=== PATIENT | male | born 2000 | race African-American/Black ===

== ENCOUNTER 2023-03-29 11:19 | Outpatient (AMB) | payer OTHER, SELFPAY ==
--- NOTE | 2023-03-29 11:21 | MHC.PC.OV ---
Vital Signs 03/29/23 11:24 Height 5 ft 9.5 in Weight 272 lb 2 oz BMI 39.6 BP 126/90 H Blood Pressure Location Lt brachial Position Sitting Respiration 12 Pulse 100 Pulse Source Pulse Oximeter Temp 97.1 F Temp Source Temporal Artery Scan Pulse Oximetry (%) 97 Oxygen Delivery Method Room Air Intake Visit Reasons: New patient-autism Intake Note: Patient's mother states that she need refills on patient's prescriptions and some of them are from a pediatric psychologist. Potato Chip Cooker Machine Required: No Accompanied by: Mother Allergies Seasonal Allergies Allergy (Mild, Verified 03/29/23 11:52) Congestion Medication List - Last Reconciled 03/29/23 by Jefry Morton CNP cetirizine (Zyrtec) 10 mg PO DAILY PRN clonidine HCl 0.2 mg PO BEDTIME methylphenidate HCl ER 72 mg PO QAM oxcarbazepine 0 mg PO sertraline 100 mg PO DAILY trazodone 150 mg PO BEDTIME Tobacco use date assessed: 03/29/23 Dental Screening Dental Screen Date: 03/29/23 Did you have a dental visit in the last 12 months?: No Did you have a dental problem in the last 6 months where you did not have access to dental care?: No Was dental information given to patient?: Yes HPI HPI Comments History of Present Illness Details 22-year-old female, accompanied by his mother, presents to [facility] care. He was last seen by his former PCP/conference service coordinator, [facility], before she retired in early 2021. He has not had blood work done in over 3 years. He has PMH significant for anxiety, autism, ADHD, PDD, and childhood asthma. He was followed by a pediatrics psychiatrist until 08/2022; his psychiatrist retired in 09/2022 He notes he is not sexually active. The patient's mother states that he has been eating past the for breakfast, lunch, and dinner. Therefore, she requests vitamin-D levels checked to rule out deficiency. She requests a refill of methylphenidate. She also requests a referral to assist the patient connect to an autism therapist and psychiatrist. [facility] Medical History (Updated 03/29/23 @ 12:39 by Jefry Morton CNP) Anxiety Asthma Autism Sinusitis Surgical History (Updated 03/29/23 @ 11:44 by Asya Jaramillo MA) No pertinent past surgical history Family History (Updated 03/29/23 @ 11:49 by Asya Jaramillo MA) Mother Asthma High blood pressure Uterine cancer Father Asthma High cholesterol Diabetes Bipolar 1 disorder Maternal Grandmother Asthma High blood pressure Cardiovascular disease Paternal Grandmother Diabetes Maternal Grandfather High blood pressure Family/Other Asthma Social History Housing: House Patient Tobacco Use Status: Never used Tobacco e-Cigarette/Vaping Use: Never Used service: No Current occupational status: unemployed and student Cognitive needs: No Hearing needs: No Vision needs: Yes Questionnaire PHQ-9 Over the last 2 weeks, how often have you been bothered by any of the following problems? 1. Little interest or pleasure in doing things: not at all 2. Feeling down, depressed, or hopeless: several days 3. Trouble falling or staying asleep, or sleeping too much: nearly every day 4. Feeling tired or having little energy: several days 5. Poor appetite or overeating: more than half the days 6. Feeling bad about yourself - or that you are a failure or have let yourself or your family down: not at all 7. Trouble concentrating on things, such as reading the newspaper or watching television: not at all 8. Moving or speaking so slowly that other people could have noticed. Or the opposite - being so fidgety or restless that you have been moving around a lot more than usual: not at all 9. Thoughts that you would be better off or of hurting yourself in some way: not at all Total score: 7 Depression Screening Interpretation: Positive Source: Developed by Drs. Jacob Clements, Neena Zurita, Leonel Chavez and colleagues, with an educational juaquin from [employer]. Thrive Questionnaire Date Thrive assessed: 03/29/23 I am a: Parent/Caregiver What is your living situation today?: I have a steady place to live Within the past 12 months, did the food you bought not last and you didn't have the money to get more?: Never true Within the past 12 months, did you worry whether your food would run out before you got money to buy more?: Never true Do you have trouble paying for medicines?: No Do you have trouble getting transportation to medical appointments?: No Do you have trouble paying your heating and electricity bill?: No Do you have trouble taking care of your child, family member or friend?: No Do you have trouble with day-to-day activities such as bathing, preparing meals, shopping, managing finances, etc.?: Yes Are you currently unemployed and looking for a job?: No Are you interested in more education?: No Please select the resources that you would like help with: None Currently or been in a relationship where the following occur: no concerns reported AUDIT C Alcohol Use Questionnaire (AUDIT-C) 1. How often do you have a drink containing alcohol?: Never 3. How often do you have six or more drinks on one occasion?: Never Total Score: 0 NICO-7 AMB Questionnaire NICO-7 Date NICO - 7 assessed: 03/29/23 Feeling nervous, anxious, or on edge: 2 = More than half the days Not being able to stop or control worryin = More than half the days Worrying too much about different things: 1 = Several days Trouble relaxin = More than half the days Being so restless that it is hard to sit still: 2 = More than half the days Becoming easily annoyed or irritable: 3 = Nearly every day Feeling afraid as if something awful might happen: 0 = Not at all Total NICO-7 score (0-4 normal; 5-9 mild; 10-14 moderate; 15-21 severe): 12 Source: Developed by Drs. Jacob Clements, Neena Zurita, Leonel Chavez and colleagues, with an educational juaquin from [employer]. ACT Questionnaire In the past 4 weeks, how much of the time did your asthma keep you from getting as much done at work, school or at home?: None of the time During the past 4 weeks, how often have you had shortness of breath?: Not at all During the past 4 weeks, how often did your asthma symptoms wake you up at night or earlier than usual in the morning?: Once or twice per week During the past 4 weeks, how often have you had to use your rescue inhaler or nebulizer medication?: Not at all How would you rate your asthma control during the past 4 weeks?: Completely controlled Score: 24 Review of Systems Const Details: Denies chills, Denies fatigue, Denies fever(s), Denies headache(s) and Denies weakness HEENT Denies change in vision, Denies dizziness, Denies headache(s), Denies hearing loss, Denies nasal congestion, Denies sinus pain, Denies sinus pressure and Denies sore throat Card Denies chest pain, Denies lightheadedness, Denies dyspnea and Denies other (palpitations) Resp Denies cough, Denies dyspnea and Denies wheezing GI Denies abdominal pain, Denies melena, Denies hematochezia, Denies change in bowel habits, Denies dyspepsia and Denies nausea Denies hematuria and Denies dysuria Musc Denies abnormal gait, Denies myalgias, Denies arthralgias, Denies numbness and Denies tingling Skin/Breast Denies rash, Denies unusual bruising and Denies wounds Neuro Denies abnormal gait, Denies dizziness, Denies headache(s), Denies memory loss, Denies numbness, Denies Sensory deficit (Neuro), Denies tingling and Denies weakness Psych Reports anxiety, Denies depression, and Denies memory loss Endo Denies cold intolerance, Denies fatigue, Denies heat intolerance, Denies polydipsia and Denies polyuria David/Lymph Denies easy bleeding and Denies easy bruising Aller/Immun Denies wheezing Physical exam (Primary Care) Vital Signs: Last Vital Signs Temp 97.1 F 03/29/23 11:24 Pulse 100 03/29/23 11:24 Resp 12 03/29/23 11:24 BP 126/90 H 03/29/23 11:24 Pulse Ox 97 03/29/23 11:24 Oxygen Delivery Method Room Air 03/29/23 11:24 BMI result Body Mass Index 39.6 Tobacco/Smoking Status: Tobacco use Status Tobacco use date assessed 03/29/23 03/29/23 11:40 Patient Tobacco Use Status Never used Tobacco 03/29/23 11:40 e-Cigarette/Vaping Use Never Used 03/29/23 11:40 Depression Screening Interpretation: Positive Currently or been in a relationship where the following occur: no concerns reported Const Other: General: no acute distress, well developed, alert and awake Nutritional Appearance: well nourished Orientation/consciousness: patient oriented x3 HENMT Head: Yes normocephalic and Yes atraumatic Ears: hearing grossly normal bilaterally and TM's normal bilaterally General nose exam: Normal external nose present and Normal nares present Mouth: Normal oral and palatal mucosa present and moist mucous membranes Teeth and gingiva: dentition normal Throat: Yes oropharynx normal Eyes Pupils: Equal, round and reactive pupils present and Pupil accommodation reflex normal EOM: EOMs intact bilaterally Neck Neck: Yes normal visual inspection, Yes no lymphadenopathy and Yes trachea midline Thyroid: Thyroid normal Carotids: no bruits Lymphatic: no lymphadenopathy noted Chest Chest palpation & inspection: normal inspection of the chest Resp Effort & Inspection: normal respiratory effort Auscultation: clear to auscultation bilaterally Cardio Rate: regular rate Rhythm: regular rhythm Heart sounds: S1 normal heart sound present, S2 normal heart sound present, no gallops, no murmurs and no rubs Bruits: no abdominal aortic bruits and no carotid bruits GI Palpation (GI): No Abdominal aortic bruit present, Soft to palpation, nontender, No hepatosplenomegaly present and No Rebound tenderness present Auscultation: normal bowel sounds General: Yes no CVA tenderness Back/Spine/Pelvis Back: no CVA tenderness Cervical Spine: cervical ROM normal and No Cervical spine tenderness Thoracic/Lumbar Spine: thoraco-lumbar ROM normal, No pain with thoraco-lumbar ROM, No thoracic spinal tenderness and No lumbar spinal tenderness Skin General: warm and dry. Normal skin color. Normal skin turgor Lesions: no lesions Rashes: no rashes Trauma: no lacerations or abrasions Wounds: no wounds Nails: normal Neuro General: patient oriented x3, gait normal and CN's II-XI intact bilaterally Cranial nerves: Yes Equal, round and reactive pupils present Cognition (Neuro): normal cognition Gait exam (Neuro): Normal gait present Motor exam (neuro): 5/5 motor strength present throughout Sensory Exam: No Sensory deficit (Neuro) Deep tendon reflexes (DTR's): Right patellar reflex intensity grade: 2+ and Left patellar reflex intensity grade: 2+ Extrem General: Yes normal to inspection, No edema and No calf tenderness Psych Appearance: grossly normal Affect: normal affect Attitude: cooperative Thought process: Normal thought process present Assessment and Plan Assessment & Plan (1) Normal physical examination, routine: Code(s): Z00.00 - Encounter for general adult medical examination without abnormal findings Plan: No significant physical restrictions or limitations noted Encouraged to get fasting blood work done before next visit Follow-up in 2 months or return sooner with worsening or new symptoms Verbalized understanding and agreed with the plan. (2) ADD (attention deficit disorder): Code(s): F98.8 - Other specified behavioral and emotional disorders with onset usually occurring in childhood and adolescence Plan: Methylphenidate refilled. Take as prescribed Referred to the community navigator to assist with connecting to autism therapist and psychiatrist Follow-up in 2 months or return sooner with symptoms or concerns Verbalized understanding and agreed with treatment plan. (3) Autism: Code(s): F84.0 - Autistic disorder Plan: Referred to the community navigator to assist with connecting to autism therapist and psychiatrist (4) Anxiety: Code(s): F41.9 - Anxiety disorder, unspecified Plan: NICO-7 score revealed mild anxiety. PHQ-9 score is normal Sertraline, trazodone, oxcarbazepine, and and clonidine as prescribed Follow-up in 2 months or return sooner with worsening or new symptoms Verbalized understanding and agreed with treatment plan. (5) Laboratory tests ordered as part of a complete physical exam (CPE): Code(s): Z00.00 - Encounter for general adult medical examination without abnormal findings Plan: Fasting labs ordered as part of a complete physical exam. Advised to fast for at least 10 hours before getting labs drawn. May drink water Verbalized understanding and agreed with treatment plan. Orders: Orders Vitamin D 25-OH Total Today Z00.00 - Encounter for general adult medical examination without abnormal findings Comprehensive Cruger. Panel Fast Today Z00.00 - Encounter for general adult medical examination without abnormal findings Complete Blood Count Auto Diff Today Z00.00 - Encounter for general adult medical examination without abnormal findings Lipid Panel Today Z00.00 - Encounter for general adult medical examination without abnormal findings TSH reflex Free T4 Today Z00.00 - Encounter for general adult medical examination without abnormal findings UA CC w/rflx Micro + Cult Today Z00.00 - Encounter for general adult medical examination without abnormal findings Referrals Nurse Navigator Referral F41.9 - Anxiety disorder, unspecified, F84.0 - Autistic disorder, F98.8 - Other specified behavioral and emotional disorders with onset usually occurring in childhood and adolescence Medications: New methylphenidate HCl ER 72 mg (2 x 36 mg) PO QAM 60 tabs 0RF 30 days Coding Level of Care Code New Pt Prev Care 18-39yr([id number] Diagnoses Normal physical examination, routine Z00.00 ADD (attention deficit disorder) F98.8 Autism F84.0 Anxiety F41.9 Laboratory tests ordered as part of a complete physical exam (CPE) Z00.00
[2023-03-29 11:24] VITALS: BP 126/90; PULSE 100; RESP 12; TEMP 36.2; O2SAT 97; BMI 39.6
== END 2023-03-29 12:37 | disposition home or self-care (01) ==
PROVIDERS: PCP Nurse Practitioner Family; Visit Provider Nurse Practitioner Family
DX: Z00.00 Encounter for general adult medical examination without abnormal findings (principal); F98.8 Other specified behavioral and emotional disorders with onset usually occurring in childhood and adolescence; F84.0 Autistic disorder; F41.9 Anxiety disorder, unspecified
CPT/HCPCS: 99385

== ENCOUNTER 2023-04-27 13:05 | Outpatient (AMB) | payer OTHER, SELFPAY ==
[2023-04-27 13:21] VITALS: BP 132/84; PULSE 108; RESP 13; TEMP 36.6; O2SAT 99; BMI 39.9
--- NOTE | 2023-04-27 13:21 | MHC.PC.OV ---
Vital Signs 04/27/23 13:21 Height 5 ft 9.5 in Weight 274 lb 6 oz BMI 39.9 BP 132/84 Blood Pressure Location Lt brachial Position Sitting Respiration 13 Pulse 108 H Pulse Source Pulse Oximeter Temp 97.9 F Temp Source Temporal Artery Scan Pulse Oximetry (%) 99 Oxygen Delivery Method Room Air Intake Visit Reasons: 04/24/23 [facility]/ enlarged spleen Intake Note: Patient mother states that when seen at emergency room patient was told he had a kidney stone as well as an enlarged spleen. Patient mother states that she is waiting for an appointment from [facility]. Patients mother states that he is currently taking Flomax and Antibiotic due to finding blood in his urine. Patient Portal Representative Required: No Accompanied by: Mother Allergies Seasonal Allergies Allergy (Mild, Verified 04/27/23 13:57) Congestion Medication List - Last Reconciled 04/27/23 by Jefry Morton CNP cephalexin 250 mg PO QID cetirizine (Zyrtec) 10 mg PO DAILY PRN clonidine HCl 0.2 mg PO BEDTIME methylphenidate HCl ER 72 mg (2 x 36 mg) PO QAM 30 days oxcarbazepine 0 mg PO sertraline 100 mg PO DAILY tamsulosin (Flomax) 0.4 mg PO DAILY trazodone 150 mg PO BEDTIME Tobacco use date assessed: 03/29/23 Dental Screening Dental Screen Date: 04/27/23 Did you have a dental visit in the last 12 months?: No Did you have a dental problem in the last 6 months where you did not have access to dental care?: No Was dental information given to patient?: Yes HPI HPI Comments History of Present Illness Details 22-year-old male, accompanied by his mother, presents for follow-up visit His mother notes he was evaluated at [facility] ED on 04/24/2023 for c/o abdominal pain, nausea, and vomiting. CT scan revealed a kidney stone and an enlarged spleen. His mother states that he is awaiting appointment from [facility] urology. He was prescribed Flomax and Keflex which he notes he has been taking as prescribed. He states that he has been using a strainer when voiding as instructed. No acute symptoms today. Review of ED notes: [facility] notes and labs not currently available on [facility] per the [place]. CT abdomen and pelvis w/o contrast was obtained and revealed the following: Spleen: the spleen is enlarged measuring up to 15.5 cm in anterior to posterior dimension. The spleen is incompletely visualized with no focal splenic lesion. Kidneys and ureters: mild dilatation of the left renal pelvis and a lower pole calyx. There is a 3 mm calculus in the proximal to mid left ureter at the level of the L2-3 intervertebral disc space. No additional renal calculi. No evidence of right hydronephrosis. No noncontrast evidence of suspicious renal mass. [facility] Medical History (Updated 05/03/23 @ 09:55 by Jefry Morton CNP) Anxiety Asthma Autism Kidney stones Sinusitis Spleen enlarged Surgical History No pertinent past surgical history Family History Mother Asthma High blood pressure Uterine cancer Father Asthma High cholesterol Diabetes Bipolar 1 disorder Maternal Grandmother Asthma High blood pressure Cardiovascular disease Paternal Grandmother Diabetes Maternal Grandfather High blood pressure Family/Other Asthma Social History Housing: House Patient Tobacco Use Status: Never used Tobacco e-Cigarette/Vaping Use: Never Used service: No Current occupational status: unemployed and student Cognitive needs: No Hearing needs: No Vision needs: Yes Questionnaire Thrive Questionnaire Date Thrive assessed: 03/29/23 NICO-7 AMB Questionnaire NICO-7 Date NICO - 7 assessed: 03/29/23 Source: Developed by Drs. Jacob Clements, Neena Zurita, Leonel Chavez and colleagues, with an educational juaquin from [employer]. Review of Systems Const Details: Const Denies chills, Denies fatigue, Denies fever(s), Denies headache(s) and Denies weakness ENT Denies dizziness and Denies headache(s) Card Denies chest pain, Denies lightheadedness, Denies dyspnea and Denies other (Palpitations) Resp Denies cough, Denies dyspnea, Denies wheezing and Denies other ( shortness of breath) GI Denies abdominal pain, Denies melena, Denies hematochezia, Denies change in bowel habits, Denies dyspepsia and Denies nausea Denies hematuria and Denies dysuria Musc Denies abnormal gait, Denies myalgias, Denies arthralgias, Denies numbness and Denies tingling Skin/Breast Denies rash, Denies unusual bruising and Denies wounds Neuro Denies abnormal gait, Denies dizziness, Denies headache(s), Denies memory loss, Denies numbness, Denies Sensory deficit (Neuro), Denies tingling and Denies weakness Psych Denies anxiety, Denies depression, Denies memory loss Endo Denies cold intolerance, Denies fatigue, Denies heat intolerance, Denies polydipsia and Denies polyuria Aller/Immun Denies wheezing Physical exam (Primary Care) Vital Signs: Last Vital Signs Temp 97.9 F 04/27/23 13:21 Pulse 108 H 04/27/23 13:21 Resp 13 04/27/23 13:21 BP 132/84 04/27/23 13:21 Pulse Ox 99 04/27/23 13:21 Oxygen Delivery Method Room Air 04/27/23 13:21 BMI result Body Mass Index 39.9 Tobacco/Smoking Status: Tobacco use Status Tobacco use date assessed 03/29/23 04/27/23 13:36 Patient Tobacco Use Status Never used Tobacco 04/27/23 13:36 e-Cigarette/Vaping Use Never Used 04/27/23 13:36 Thrive Assessment: Date of Thrive Assessment Date Thrive assessed 03/29/23 04/27/23 13:36 Const Other: General: no acute distress and well developed Nutritional Appearance: well nourished Orientation/consciousness: patient oriented x3 HENMT Head: Yes normocephalic and Yes atraumatic Eyes General: appearance normal, both eyes and all related structures Pupils: Equal, round and reactive pupils present EOM: EOMs intact bilaterally Resp Effort & Inspection: normal respiratory effort Auscultation: clear to auscultation bilaterally Cardio Rate: regular rate Rhythm: regular rhythm Heart sounds: S1 normal heart sound present, S2 normal heart sound present, no gallops, no murmurs and no rubs GI Palpation (GI): No Abdominal aortic bruit present, Soft to palpation, nontender, No hepatosplenomegaly present and No Rebound tenderness present Auscultation: normal bowel sounds General: Yes no CVA tenderness Back/Spine/Pelvis Back: no CVA tenderness Cervical Spine: cervical ROM normal and No Cervical spine tenderness Thoracic/Lumbar Spine: thoraco-lumbar ROM normal, No pain with thoraco-lumbar ROM, No thoracic spinal tenderness and No lumbar spinal tenderness Extrem General: Yes normal to inspection, No edema and No calf tenderness Skin General: warm and dry. Normal skin color. Normal skin turgor Lesions: no lesions Rashes: no rashes Trauma: no lacerations or abrasions Wounds: no wounds Nails: normal Neuro General: patient oriented x3, gait normal and no focal neuro deficit Cranial nerves: Yes Equal, round and reactive pupils present Cognition (Neuro): normal cognition Gait exam (Neuro): Normal gait present Sensory Exam: No Sensory deficit (Neuro) Psych Appearance: grossly normal Affect: normal affect Attitude: cooperative Thought process: Normal thought process present Assessment and Plan Assessment & Plan (1) Hospital discharge follow-up: Code(s): Z09 - Encounter for follow-up examination after completed treatment for conditions other than malignant neoplasm Plan: No current symptoms Continue with current treatment regimen Follow-up with urology as planned Advised to avoid contact sports or exercise to prevent trauma or injury to the spleen Referred to GI Return with new or worsening symptoms Verbalized understanding and agreed with treatment plan. (2) Spleen enlarged: Code(s): R16.1 - Splenomegaly, not elsewhere classified Plan: As above Orders: Referrals Gastroenterology Referral R16.1 - Splenomegaly, not elsewhere classified Coding Level of Care Code Est Pt Level 3 (43249) Diagnoses Hospital discharge follow-up Z09 Spleen enlarged R16.1
== END 2023-04-27 14:09 | disposition home or self-care (01) ==
PROVIDERS: PCP Nurse Practitioner Family; Visit Provider Nurse Practitioner Family
DX: Z09 Encounter for follow-up examination after completed treatment for conditions other than malignant neoplasm (principal); R16.1 Splenomegaly, not elsewhere classified
CPT/HCPCS: 99213

== ENCOUNTER 2023-04-28 08:41 | Outpatient (REF) | payer OTHER, SELFPAY ==
[2023-04-28 11:12] LABS: MANUAL DIFF FLAG NO
[2023-04-28 11:53] LABS: Basophils Absolute Auto 0.1 X10*3/uL (0.0-0.2); Basophils Percent Auto 0.5 % (0-2); Eosinophils Absolute Auto 0.2 X10*3/uL (0.0-0.4); Eosinophils Percent Auto 2.1 % (0-4); Hematocrit 44.3 % (42.0-52.0); Hemoglobin 15.3 g/dl (14.0-18.0); Imm Gran Abs Auto 0.03 X10*3/uL (0.00-0.03); Imm Gran Pct Auto 0.3 % (0.0-0.4); Lymphocytes Absolute Auto 3.1 X10*3/uL (1.2-4.9); Lymphocytes Percent Auto 30.8 % (20-40); Mean Corpuscular HGB Conc 34.5 g/dl (31.0-36.0); Mean Corpuscular Hemoglobin 33.4 pg (27.0-33.0); Mean Corpuscular Volume 96.7 fL (80.0-98.0); Mean Platelet Volume 10.6 fL (9.4-12.4); Monocytes Absolute Auto 0.6 X10*3/uL (0.1-1.2); Monocytes Percent Auto 5.7 % (2-11); Neutrophils Absolute Auto 6.1 x10*3/uL (2.0-8.3); Neutrophils Percent Auto 60.6 % (45-73); Platelet Count 320 X10*3/uL (160-400); Red Blood Count 4.58 X10*6/uL (4.60-5.80); Red Cell Distribution Width 14.6 % (11.0-16.0); White Blood Count 10.1 X10*3/uL (4.8-10.8)
[2023-04-28 12:20] LABS: Alanine Aminotransferase 58 U/L (0-40); Albumin Level 4.3 g/dL (3.5-5.0); Alkaline Phosphatase 83 U/L (39-117); Anion Gap 12 (12-20); Aspartate Amino Transferase 40 U/L (5-37); Bilirubin Total 0.6 mg/dL (0.0-1.0); Blood Urea Nitrogen 8 mg/dL (9-16); Calcium 9.1 mg/dL (8.4-10.2); Carbon Dioxide 23 mmol/L (22-29); Chloride 107 mmol/L (96-108); Cholesterol 174 mg/dL (<200); Estimated Glomerular Filt Rate > 60; Glucose Fasting 99 mg/dL (60-99); HDL Cholesterol 39 mg/dL (>40); LDL Cholesterol Calculated 111 mg/dL (<100); Potassium 3.9 mmol/L (3.3-5.1); Sodium 138 mmol/L (135-145); Total Protein 7.8 g/dL (6.5-8.0); Triglycerides 123 mg/dL (<150)
[2023-04-28 12:25] LABS: TSH reflex Free T4 1.14 uIU/mL (0.32-4.0); Vitamin D 25-OH Total 11.2 ng/mL (>30)
[2023-04-28 14:57] LABS: Appearance Urine Clear; Color Urine Yellow; Glucose Urine UA Negative (Negative); Leukocyte Esterase Urine Negative (Negative); Nitrite Urine Negative (Negative); PH 6.5 (5.0-9.0); Specific Gravity - Urine 1.015 (1.005-1.025); Urine Blood Negative (Negative); Urine Ketones Negative (Negative); Urine Protein Negative (Neg-Trace)
== END 2023-04-28 08:42 | disposition home or self-care (01) ==
LOC: HO.WFDLDS 08:41
PROVIDERS: Visit Provider Nurse Practitioner Family
DX: Z00.00 Encounter for general adult medical examination without abnormal findings (principal)
CPT/HCPCS: 36415; 80053; 80061; 81003; 82306; 84443; 85025

== ENCOUNTER 2023-05-31 09:56 | Outpatient (AMB) | payer OTHER, SELFPAY ==
--- NOTE | 2023-05-31 09:58 | MHC.PC.OV ---
Vital Signs 05/31/23 09:59 Height 5 ft 9.5 in Weight 275 lb 6 oz BMI 40.1 BP 122/68 Blood Pressure Location Rt brachial Position Sitting Respiration 12 Pulse 90 Pulse Source Pulse Oximeter Temp 97.1 F Temp Source Temporal Artery Scan Pulse Oximetry (%) 97 Oxygen Delivery Method Room Air Intake Visit Reasons: 2 mos anxiety, autism, ADHD, PDD Intake Note: Patient's mother states that he was suppose to go to GI due to his spleen being swollen and hasnt received a phone call. Patient was isha ble to do PHQ-9 and NICO-7 due to it being hard to assess due to autism. Information Support Project Manager Required: No Accompanied by: Mother Allergies Seasonal Allergies Allergy (Mild, Verified 05/31/23 10:28) Congestion Medication List - Last Reconciled 05/31/23 by Jefry Morton CNP cetirizine (Zyrtec) 10 mg PO DAILY PRN cholecalciferol (vitamin D3) 1,250 mcg PO QWEEK 8 weeks clonidine HCl 0.2 mg PO BEDTIME methylphenidate HCl ER 72 mg (2 x 36 mg) PO QAM 30 days oxcarbazepine 0 mg PO sertraline 100 mg PO DAILY trazodone 150 mg PO BEDTIME Tobacco use date assessed: 03/29/23 Dental Screening Dental Screen Date: 05/31/23 Did you have a dental visit in the last 12 months?: No Did you have a dental problem in the last 6 months where you did not have access to dental care?: No Was dental information given to patient?: Yes HPI HPI Comments History of Present Illness Details 22-year-old male, accompanied by his mother, presents for anxiety, ADHD, PDD, and autism follow-up. He is on methylphenidate, sertraline, oxcarbazepine, and trazodone. He admits to taking his medications as prescribed. His mother states that the medications are effective in controlling the patient's symptoms. He offers no complaints and denies acute symptoms at this time. She was referred to a therapist and psychiatrist by our community navigator. His mother notes that the patient have not been contacted by a therapist and psychiatrist. She states she was informed about a therapist whom she will contact for an appointment. He was evaluated for an ED follow-up visit for abdominal pain on 04/27/2023. CT revealed kidney stones and enlarged spleen. He was referred to Urology and GI. His mother states that the patient was evaluated by urology last week with normal finding. The patient is awaiting to be contacted by GI for an appointment. His mother states that he has an ophthalmology appointment for an eye exam in June. [facility] Medical History Spleen enlarged Kidney stones Anxiety Autism Sinusitis Asthma Surgical History No pertinent past surgical history Family History Mother Asthma High blood pressure Uterine cancer Father Asthma High cholesterol Diabetes Bipolar 1 disorder Maternal Grandmother Asthma High blood pressure Cardiovascular disease Paternal Grandmother Diabetes Maternal Grandfather High blood pressure Family/Other Asthma Social History Housing: House Patient Tobacco Use Status: Never used Tobacco e-Cigarette/Vaping Use: Never Used service: No Current occupational status: unemployed and student Cognitive needs: No Hearing needs: No Vision needs: Yes Questionnaire Thrive Questionnaire Date Thrive assessed: 03/29/23 NICO-7 AMB Questionnaire NICO-7 Date NICO - 7 assessed: 03/29/23 Source: Developed by Drs. Jacob Clements, Neena Zurita, Leonel Chavez and colleagues, with an educational juaquin from [email or web address]. Review of Systems Const Details: Const Denies chills, Denies fatigue, Denies fever(s), Denies headache(s) and Denies weakness ENT Denies dizziness and Denies headache(s) Card Denies chest pain, Denies lightheadedness, Denies dyspnea and Denies other (Palpitations) Resp Denies cough, Denies dyspnea, Denies wheezing and Denies other ( shortness of breath) GI Denies abdominal pain, Denies melena, Denies hematochezia, Denies change in bowel habits, Denies dyspepsia and Denies nausea Denies hematuria and Denies dysuria Musc Denies abnormal gait, Denies myalgias, Denies arthralgias, Denies numbness and Denies tingling Skin/Breast Denies rash, Denies unusual bruising and Denies wounds Neuro Denies abnormal gait, Denies dizziness, Denies headache(s), Denies memory loss, Denies numbness, Denies Sensory deficit (Neuro), Denies tingling and Denies weakness Psych Denies anxiety, Denies depression, Denies memory loss Endo Denies cold intolerance, Denies fatigue, Denies heat intolerance, Denies polydipsia and Denies polyuria Aller/Immun Denies wheezing Physical exam (Primary Care) Vital Signs: Last Vital Signs Temp 97.1 F 05/31/23 09:59 Pulse 90 05/31/23 09:59 Resp 12 05/31/23 09:59 BP 122/68 05/31/23 09:59 Pulse Ox 97 05/31/23 09:59 Oxygen Delivery Method Room Air 05/31/23 09:59 BMI result Body Mass Index 40.1 Tobacco/Smoking Status: Tobacco use Status Tobacco use date assessed 03/29/23 05/31/23 10:12 Patient Tobacco Use Status Never used Tobacco 05/31/23 10:12 e-Cigarette/Vaping Use Never Used 05/31/23 10:12 Thrive Assessment: Date of Thrive Assessment Date Thrive assessed 03/29/23 05/31/23 10:12 Const Other: General: no acute distress and well developed Nutritional Appearance: well nourished Orientation/consciousness: patient oriented x3 HENMT Head: Yes normocephalic and Yes atraumatic Eyes General: appearance normal, both eyes and all related structures Pupils: Equal, round and reactive pupils present EOM: EOMs intact bilaterally Resp Effort & Inspection: normal respiratory effort Auscultation: clear to auscultation bilaterally Cardio Rate: regular rate Rhythm: regular rhythm Heart sounds: S1 normal heart sound present, S2 normal heart sound present, no gallops, no murmurs and no rubs GI Palpation (GI): No Abdominal aortic bruit present, Soft to palpation, nontender, No hepatosplenomegaly present and No Rebound tenderness present Auscultation: normal bowel sounds General: Yes no CVA tenderness Back/Spine/Pelvis Back: no CVA tenderness Cervical Spine: cervical ROM normal and No Cervical spine tenderness Thoracic/Lumbar Spine: thoraco-lumbar ROM normal, No pain with thoraco-lumbar ROM, No thoracic spinal tenderness and No lumbar spinal tenderness Extrem General: Yes normal to inspection, No edema and No calf tenderness Skin General: warm and dry. Normal skin color. Normal skin turgor Lesions: no lesions Rashes: no rashes Trauma: no lacerations or abrasions Wounds: no wounds Nails: normal Neuro General: patient oriented x3, gait normal and no focal neuro deficit Cranial nerves: Yes Equal, round and reactive pupils present Cognition (Neuro): normal cognition Gait exam (Neuro): Normal gait present Sensory Exam: No Sensory deficit (Neuro) Psych Appearance: grossly normal Affect: normal affect Attitude: cooperative Thought process: Normal thought process present Assessment and Plan Assessment & Plan (1) Anxiety: Code(s): F41.9 - Anxiety disorder, unspecified Plan: Stable His mother states that it is challenging for her of the patient to complete the PHQ-9 and NICO-7 screening Continue with current treatment regimen Follow-up with a psychiatrist as planned She was given resources for PMHNP Follow-up in 3 months or return sooner with worsening or new symptoms Verbalized understanding and agreed with treatment plan. (2) ADD (attention deficit disorder): Code(s): F98.8 - Other specified behavioral and emotional disorders with onset usually occurring in childhood and adolescence Plan: As above (3) Autism: Code(s): F84.0 - Autistic disorder Plan: As above (4) Transaminitis: Code(s): R74.01 - Elevation of levels of liver transaminase levels Plan: Recent lab results reviewed with the patient AST and ALT are slightly elevated, likely due to fatty liver disease Routine exercise and healthy diet encouraged. Will monitor periodically Verbalized understanding and agreed with treatment plan. (5) Elevated LDL cholesterol level: Code(s): E78.00 - Pure hypercholesterolemia, unspecified Plan: Recent LDL level is slightly elevated, HDL is slightly low Advised to limit foods high in saturated fat and avoid foods high trans fat Routine exercise encouraged Will continue to monitor periodically Follow-up with symptoms or concerns Verbalized understanding and agreed with treatment plan. (6) Low HDL (under 40): Code(s): E78.6 - Lipoprotein deficiency Plan: As above (7) Vitamin D deficiency: Code(s): E55.9 - Vitamin D deficiency, unspecified Plan: Recent vitamin-D level is low, 11.2 He was started on vitamin D3 68840 units. He admits to taking the medication as prescribed Vitamin-D level ordered to monitor trend. Advised to get blood work done later next month Follow-up with symptoms or concerns Verbalized understanding and agreed with treatment plan. (8) Spleen enlarged: Code(s): R16.1 - Splenomegaly, not elsewhere classified Plan: No acute symptoms He was referred to [facility] last month for an enlarged spleen Patient's mother states that the patient is still awaiting to be contacted by GI for an appointment The MA contacted [facility] office and was informed that they will contact the patient today to schedule an appointment Patient advised to return with symptoms or concerns Verbalized understanding and agreed with plan. Orders: Orders Vitamin D 25-OH Total 1 Month E55.9 - Vitamin D deficiency, unspecified Coding Level of Care Code Est Pt Level 3 (54356) Diagnoses Anxiety F41.9 ADD (attention deficit disorder) F98.8 Autism F84.0 Transaminitis R74.01 Elevated LDL cholesterol level E78.00 Low HDL (under 40) E78.6 Vitamin D deficiency E55.9 Spleen enlarged R16.1
[2023-05-31 09:59] VITALS: BP 122/68; PULSE 90; RESP 12; TEMP 36.2; O2SAT 97; BMI 40.1
== END 2023-05-31 10:54 | disposition home or self-care (01) ==
PROVIDERS: PCP Nurse Practitioner Family; Visit Provider Nurse Practitioner Family
DX: F41.9 Anxiety disorder, unspecified (principal); F84.0 Autistic disorder; E55.9 Vitamin D deficiency, unspecified; R74.01 Elevation of levels of liver transaminase levels; F98.8 Other specified behavioral and emotional disorders with onset usually occurring in childhood and adolescence; E78.00 Pure hypercholesterolemia, unspecified; E78.6 Lipoprotein deficiency; R16.1 Splenomegaly, not elsewhere classified
CPT/HCPCS: 99213

== ENCOUNTER 2023-08-31 11:05 | Outpatient (AMB) | payer OTHER, SELFPAY ==
[2023-08-31 11:10] VITALS: BP 116/64; PULSE 104; RESP 14; TEMP 36.3; O2SAT 96; BMI 39.4
--- NOTE | 2023-08-31 11:10 | A.OFFPC_ITS ---
Vital Signs 08/31/23 11:10 Height 5 ft 9.5 in Weight 270 lb 6 oz BMI 39.4 BP 116/64 Blood Pressure Location Rt brachial Position Sitting Respiration 14 Pulse 104 H Pulse Source Pulse Oximeter Temp 97.4 F Temp Source Temporal Artery Scan Pulse Oximetry (%) 96 Oxygen Delivery Method Room Air Intake Visit Reasons: 3 mos anxiety, ADHD, autism Application Security Engineer Required: No Accompanied by: Mother Allergies Seasonal Allergies Allergy (Mild, Verified 08/31/23 11:16) Congestion Tobacco use date assessed: 03/29/23 Dental Screening Dental Screen Date: 08/31/23 Did you have a dental visit in the last 12 months?: No Did you have a dental problem in the last 6 months where you did not have access to dental care?: No Was dental information given to patient?: Patient has dentist HPI HPI Comments History of Present Illness Details 22-year-old male, accompanied by his mot her, presents for anxiety, ADHD, and autism follow-up He admits to taking his medications as prescribed without adverse reactions His mother notes that he is on a wait list with [facility] to establish with a therapist and psychiatrist He denies anxiety and depression symptoms His mom states that the patient will soon get blood work done for repeat vitamin D level [facility] Medical History Spleen enlarged Kidney stones Anxiety Autism Sinusitis Asthma Surgical History No pertinent past surgical history Family History Mother Asthma High blood pressure Uterine cancer Father Asthma High cholesterol Diabetes Bipolar 1 disorder Maternal Grandmother Asthma High blood pressure Cardiovascular disease Paternal Grandmother Diabetes Maternal Grandfather High blood pressure Family/Other Asthma Social History Housing: House Patient Tobacco Use Status: Never used Tobacco e-Cigarette/Vaping Use: Never Used service: No Current occupational status: unemployed and student Cognitive needs: No Hearing needs: No Vision needs: Yes Questionnaire Thrive Questionnaire Date Thrive assessed: 03/29/23 NICO-7 AMB Questionnaire NICO-7 Date NICO - 7 assessed: 03/29/23 Source: Developed by Drs. Jacob Clements, Neena Zurita, Leonel Chavez and colleagues, with an educational juaquin from [employer]. Review of Systems Const Details: Const Denies chills, Denies fatigue, Denies fever(s), Denies headache(s) and Denies weakness ENT Denies dizziness and Denies headache(s) Card Denies chest pain, Denies lightheadedness, Denies dyspnea and Denies other ( Palpitations) Resp Denies cough, Denies dyspnea, Denies wheezing and Denies other ( shortness of breath) GI Denies abdominal pain, Denies melena, Denies hematochezia, Denies change in bowel habits, Denies dyspepsia and Denies nausea Denies hematuria and Denies dysuria Musc Denies abnormal gait, Denies myalgias, Denies arthralgias, Denies numbness and Denies tingling Skin/Breast Denies rash, Denies unusual bruising and Denies wounds Neuro Denies abnormal gait, Denies dizziness, Denies headache(s), Denies memory loss, Denies numbness, Denies Sensory deficit (Neuro), Denies tingling and Denies weakness Psych Denies anxiety, Denies depression, Denies memory loss Endo Denies cold intolerance, Denies fatigue, Denies heat intolerance, Denies polydipsia and Denies polyuria Aller/Immun Denies wheezing Physical exam (Primary Care) Vital Signs: Last Vital Signs Temp 97.4 F 08/31/23 11:10 Pulse 104 H 08/31/23 11:10 Resp 14 08/31/23 11:10 BP 116/64 08/31/23 11:10 Pulse Ox 96 08/31/23 11:10 Oxygen Delivery Method Room Air 08/31/23 11:10 BMI result Body Mass Index 39.4 Tobacco/Smoking Status: Tobacco use Status Tobacco use date assessed 03/29/23 08/31/23 11:16 Patient Tobacco Use Status Never used Tobacco 08/31/23 11:16 e-Cigarette/Vaping Use Never Used 08/31/23 11:16 Thrive Assessment: Date of Thrive Assessment Date Thrive assessed 03/29/23 08/31/23 11:16 Const Other: General: no acute distress and well developed Nutritional Appearance: well nourished Orientation/consciousness: patient oriented x3 HENMT Head: Yes normocephalic and Yes atraumatic Eyes General: appearance normal, both eyes and all related structures Pupils: Equal, round and reactive pupils present EOM: EOMs intact bilaterally Resp Effort & Inspection: normal respiratory effort Auscultation: clear to auscultation bilaterally Cardio Rate: regular rate Rhythm: regular rhythm Heart sounds: S1 normal heart sound present, S2 normal heart sound present, no gallops, no murmurs and no rubs GI Palpation (GI): No Abdominal aortic bruit present, Soft to palpation, nontender, No hepatosplenomegaly present and No Rebound tenderness present Auscultation: normal bowel sounds General: Yes no CVA tenderness Back/Spine/Pelvis Back: no CVA tenderness Cervical Spine: cervical ROM normal and No Cervical spine tenderness Thoracic/Lumbar Spine: thoraco-lumbar ROM normal, No pain with thoraco-lumbar ROM, No thoracic spinal tenderness and No lumbar spinal tenderness Extrem General: Yes normal to inspection, No edema and No calf tenderness Skin General: warm and dry. Normal skin color. Normal skin turgor Neuro General: patient oriented x3, gait normal and no focal neuro deficit Cranial nerves: Yes Equal, round and reactive pupils present Cognition (Neuro): normal cognition Gait exam (Neuro): Normal gait present Sensory Exam: No Sensory deficit (Neuro) Psych Appearance: grossly normal Affect: normal affect Attitude: cooperative Thought process: Normal thought process present Assessment and Plan Assessment & Plan (1) Anxiety: Code(s): F41.9 - Anxiety disorder, unspecified Plan: No acute symptoms His mother states that it is challenging for her of the patient to complete the PHQ-9 and NICO-7 screening Continue with current treatment regimen He is on wait list to establish care with [facility] with a therapist and psychiatrist. Advised to also contact [facility] for therapist and psychiatrist Follow-up in 3 months or return sooner with worsening or new symptoms Verbalized understanding and agreed with treatment plan (2) ADD (attention deficit disorder): Code(s): F98.8 - Other specified behavioral and emotional disorders with onset usually occurring in childhood and adolescence Plan: As above (3) Autism: Code(s): F84.0 - Autistic disorder Plan: As above Coding Level of Care Code Est Pt Level 3 (87780) Diagnoses Anxiety F41.9 ADD (attention deficit disorder) F98.8 Autism F84.0
== END 2023-08-31 11:39 | disposition home or self-care (01) ==
PROVIDERS: PCP Nurse Practitioner Family; Visit Provider Nurse Practitioner Family
DX: F41.9 Anxiety disorder, unspecified (principal); F98.8 Other specified behavioral and emotional disorders with onset usually occurring in childhood and adolescence; F84.0 Autistic disorder
CPT/HCPCS: 99213

== ENCOUNTER 2023-10-05 15:14 | Outpatient (AMB) | payer OTHER, SELFPAY ==
--- NOTE | 2023-10-05 15:16 | A.OFFVIS_ITS ---
Intake Vital Signs 10/05/23 15:18 Height 5 ft 9.5 in Weight 275 lb 9.245 oz BMI 40.1 BP 134/86 Blood Pressure Location Lt brachial Position Sitting Pulse 95 Intake Visit Reasons: Enlarged spleen Intake Note: Miguel presents in the office as a new patient for enlarged spleen. CC: Mom states that she is not sure why they are here. This happened in April. States that it happened when he was sleeping - he was having abdominal pains. He thought it was from not enough sleep but it was kidney stones. He went to [place] ER and was given an ultrasound but that is where they seen his spleen was enlarged. He was put on antibiotic. He states once in a while he will have constipation and diarrhea. Allergies Seasonal Allergies Allergy (Mild, Verified 10/05/23 15:19) Congestion HPI HPI Comments History of Present Illness Details This is a 23-year-old gentleman with past medical history of autism spectrum, and ADD, who is here with his mother for splenomegaly that was incidentally noted on CT scan in May 2023. Patient himself reports occasional constipation, but otherwise has no abdominal complaints to include abdominal pain, nausea, vomiting, changes in appetite, itching, abdominal distention. He was seen in the emergency room for question of renal stones for which she underwent a CT scan that also showed enlarged spleen. He has also had an ultrasound in April for his kidneys, that also showed hepatic steatosis. LFTs from last year with elevated transaminases less than 5 times upper normal limit. [facility] Medical History Spleen enlarged Kidney stones Anxiety Autism Sinusitis Asthma Surgical History No pertinent past surgical history Family History Mother Asthma High blood pressure Uterine cancer Father Asthma High cholesterol Diabetes Bipolar 1 disorder Maternal Grandmother Asthma High blood pressure Cardiovascular disease Paternal Grandmother Diabetes Maternal Grandfather High blood pressure Family/Other Asthma Social History Housing: House Patient Tobacco Use Status: Never used Tobacco e-Cigarette/Vaping Use: Never Used service: No Current occupational status: unemployed and student Cognitive needs: No Hearing needs: No Vision needs: Yes Review of Systems Const All systems reviewed & are unremarkable except as noted in HPI and below Physical Exam Vital Signs: Last Vital Signs Pulse 95 10/05/23 15:18 BP 134/86 10/05/23 15:18 BMI result Body Mass Index 40.1 Const General: cooperative and no acute distress Orientation/consciousness: patient oriented x3 HEENT Head: Yes normocephalic GI Inspection: Yes obesity Skin General skin exam: no rashes or lesions noted Neuro General: patient oriented x3 Assessment & Plan Assessment & Plan (1) Spleen enlarged: Code(s): R16.1 - Splenomegaly, not elsewhere classified (2) Transaminitis: Code(s): R74.01 - Elevation of levels of liver transaminase levels (3) Fatty liver: Code(s): K76.0 - Fatty (change of) liver, not elsewhere classified Plan Based on labs and imaging, likely has fatty liver and splenomegaly. Has super morbid obesity with BMI of 40, along with other comorbidities including BRIT and hyperlipidemia. Recommendations: -recommend 10% total body weight loss over 6 months -control of metabolic factors as above -we will also check labs for other etiology of chronic liver disease, these can be done on nonurgent basis -since patient is only able to address 1 issue per visit, a discussion regarding bariatric referral was deferred at today's visit, to be reviewed at next follow- up. Follow-up in 6 months Orders: Orders IRON PROFILE Today R74.01 - Elevation of levels of liver transaminase levels Immunoglobulin A Today R74.01 - Elevation of levels of liver transaminase levels Transglutaminase IgA Today R74.01 - Elevation of levels of liver transaminase levels Hepatitis B Core Antibody Today R74.01 - Elevation of levels of liver transaminase levels Hepatitis C Antibody Today R74.01 - Elevation of levels of liver transaminase levels Liver Kidney Microsomal Ab Today R74.01 - Elevation of levels of liver transaminase levels Ceruloplasmin Today R74.01 - Elevation of levels of liver transaminase levels Alpha 1 Anti-trypsin Today R74.01 - Elevation of levels of liver transaminase levels Ferritin Today R74.01 - Elevation of levels of liver transaminase levels Immunoglobulin G Today R74.01 - Elevation of levels of liver transaminase levels Liver Panel Today R74.01 - Elevation of levels of liver transaminase levels Hemoglobin A1c Today R74.01 - Elevation of levels of liver transaminase levels Hepatitis A IgG Today R74.01 - Elevation of levels of liver transaminase levels Hepatitis B Surface Antibody Today R74.01 - Elevation of levels of liver transaminase levels Hepatitis B Surface Antigen Today R74.01 - Elevation of levels of liver transaminase levels Coding Level of Care Code New Pt Level 4 (83464) Diagnoses Spleen enlarged R16.1 Transaminitis R74.01 Fatty liver K76.0
[2023-10-05 15:18] VITALS: BP 134/86; PULSE 95; BMI 40.1
== END 2023-10-05 15:52 | disposition home or self-care (01) ==
PROVIDERS: PCP Nurse Practitioner Family; Visit Provider Internal Medicine
DX: R16.1 Splenomegaly, not elsewhere classified (principal); R74.01 Elevation of levels of liver transaminase levels; K76.0 Fatty (change of) liver, not elsewhere classified
CPT/HCPCS: 99204

== ENCOUNTER → 2023-10-05 15:14 | Outpatient (BNVA) | payer OTHER, SELFPAY | PROVIDERS: PCP Nurse Practitioner Family; Visit Provider Internal Medicine ==

== ENCOUNTER 2023-10-11 09:36 | Outpatient (REF) | payer OTHER, SELFPAY ==
[2023-10-11 11:49] LABS: Estimated Average Glucose 97 mg/dL
[2023-10-11 12:02] LABS: HBS Num1 8.68 mIU/mL (0-7.99); HBc Num1 0.15 S/CO (0.00-0.79); HBsAGNum1 0.65 S/CO (0.00-0.99); Hepatitis B Core Antibody Nonreactive (Nonreactive); Hepatitis B Surface Antigen Negative (Negative); ~HepC Num1 0.17 S/CO (0.00-0.79); ~Hepatitis C Antibody Nonreactive (Nonreactive)
[2023-10-11 12:04] LABS: Hepatitis A Antibody IgG Nonreactive (Nonreactive); ~Hepatitis A Antibody IgG 0.82 S/CO (0.00-0.99)
[2023-10-11 12:22] LABS: Alanine Aminotransferase 40 U/L (0-40); Albumin Level 4.2 g/dL (3.5-5.0); Alkaline Phosphatase 78 U/L (39-117); Aspartate Amino Transferase 26 U/L (5-37); Bilirubin Direct 0.2 mg/dL (0.0-0.5); Bilirubin Total 0.4 mg/dL (0.0-1.0); Ferritin 221 ng/mL (20-250); Iron 100 mcg/dL (45-160); Percent Iron Saturation 34 % (15-50); Total Iron Binding Capacity 290 mcg/dL (228-428); Total Protein 7.4 g/dL (6.5-8.0); Unsaturated Iron Binding 190 ug/dL
[2023-10-11 13:24] LABS: Vitamin D 25-OH Total 27.1 ng/mL (>30)
[2023-10-11 13:46] LABS: HBS Num2 9.12 mIU/mL (0-7.99); HBS Num3 8.73 mIU/mL (0-7.99)
[2023-10-11 13:47] LABS: ~Hepatitis B Surface Antibody GRAYZONE (Nonreactive)
[2023-10-12 17:28] LABS: Immunoglobulin A 295 mg/dL (47-310); Immunoglobulin G 1209 mg/dL (600-1640)
[2023-10-12 18:33] LABS: Transglutaminase IgA <1.0 U/mL
[2023-10-13 14:09] LABS: Alpha 1 Anti-trypsin 139 mg/dL (83-199); Ceruloplasmin 27 mg/dL (18-36)
[2023-10-17 13:34] LABS: Liver Kidney Microsomal Ab <=20.0 U (<=20.0)
== END 2023-10-11 09:37 | disposition home or self-care (01) ==
LOC: HO.WFDLDS 09:36
PROVIDERS: Visit Provider Internal Medicine
DX: R74.01 Elevation of levels of liver transaminase levels (principal)
CPT/HCPCS: 36415; 80076; 82103; 82306; 82390; 82728; 82784; 83036; 83540; 86364; 86376; 86704; 86706; 86708; 86803; 87340

== ENCOUNTER 2024-04-13 13:10 | Outpatient (AMB) | payer OTHER, SELFPAY ==
--- NOTE | 2024-04-13 13:17 | A.OFFVIS_ITS ---
Vital Signs 04/13/24 13:19 Height 5 ft 9.5 in Weight 264 lb 8.875 oz BMI 38.5 BP 145/95 H Blood Pressure Location Lt brachial Position Sitting Pulse 83 Intake Visit Reasons: 6 month follow up Intake Note: Treasure presents in the office as a 6 month follow up. CC: He states that he is feeling okay for the time being. Allergies Seasonal Allergies Allergy (Mild, Verified 04/13/24 13:20) Congestion HPI Comments Details: This is a 23-year-old gentleman with past medical history of autism spectrum, and ADD, who is here with his mother for splenomegaly that was incidentally noted on CT scan in May 2023. Patient himself reports occasional constipation, but otherwise has no abdominal complaints to include abdominal pain, nausea, vomiting, changes in appetite, itching, abdominal distention. He was seen in the emergency room for question of renal stones for which she underwent a CT scan that also showed enlarged spleen. He has also had an ultrasound in April for his kidneys, that also showed hepatic steatosis. LFTs from last year with elevated transaminases less than 5 times upper normal limit. 04/13/24: Here for follow up. Has had a weight loss of almost 10 lbs since last seen! Has been incorporating more activities - likes to drum. Labs reviewed, transaminases normalised. Other chronic liver disease work up negative. Low vit D noted. COUNTS INCLUDE 234 BEDS AT THE [facility] Medical History Spleen enlarged Kidney stones Anxiety Autism Sinusitis Asthma Surgical History No pertinent past surgical history Family History Mother Asthma High blood pressure Uterine cancer Father Asthma High cholesterol Diabetes Bipolar 1 disorder Maternal Grandmother Asthma High blood pressure Cardiovascular disease Paternal Grandmother Diabetes Maternal Grandfather High blood pressure Family/Other Asthma Social History Housing: House Patient Tobacco Use Status: Never used Tobacco e-Cigarette/Vaping Use: Never Used service: No Current occupational status: unemployed and student Cognitive needs: No Hearing needs: No Vision needs: Yes Review of Systems Const All systems reviewed & are unremarkable except as noted in HPI and below Physical Exam Vital Signs: Last Vital Signs Pulse 83 04/13/24 13:19 BP 145/95 H 04/13/24 13:19 BMI result Body Mass Index 38.5 NAD Obese young male Nonicteric Abd soft, nontender, nondistended Assessment & Plan Assessment & Plan (1) Spleen enlarged: Code(s): R16.1 - Splenomegaly, not elsewhere classified Category: Medical (2) Transaminitis: Code(s): R74.01 - Elevation of levels of liver transaminase levels Category: Medical (3) Fatty liver: Code(s): K76.0 - Fatty (change of) liver, not elsewhere classified Category: Medical Plan Based on labs and imaging, likely has fatty liver and splenomegaly. Has super morbid obesity with BMI of 38. Mild HLD. A1c normal. Fib-4 0.28 and reassuring. Recommendations: -recommend continued effort for weight loss. Ideally to target normal BMI but at least 10% total body weight loss over 6 months to start with. -control of metabolic factors -reviewed bariatric med today but pt gets overwhelmed so referral deferred -pt will be discharged back to PCP's excellent care with recommendation for intermittent LFT monitoring and to refer back to GI for persistent elevation of LFTs >x3 UNL. Medications: New cholecalciferol (vitamin D3) 1,250 mcg PO QWEEK 90 days 13 caps 0RF Coding Level of Care Code Est Pt Level 3 (74581) Diagnoses Spleen enlarged R16.1 Transaminitis R74.01 Fatty liver K76.0
[2024-04-13 13:19] VITALS: BP 145/95; PULSE 83; BMI 38.5
== END 2024-04-13 13:55 | disposition home or self-care (01) ==
PROVIDERS: PCP Nurse Practitioner Family; Visit Provider Internal Medicine
DX: R16.1 Splenomegaly, not elsewhere classified (principal); R74.01 Elevation of levels of liver transaminase levels; K76.0 Fatty (change of) liver, not elsewhere classified
CPT/HCPCS: 99213

== ENCOUNTER → 2024-04-13 13:10 | Outpatient (BNVA) | payer OTHER, SELFPAY | PROVIDERS: PCP Nurse Practitioner Family; Visit Provider Internal Medicine ==